=== PATIENT | male | born 1945 | race Caucasian/White ===

== ENCOUNTER 2018-08-10 09:38 | Inpatient (IN) ==
[2018-08-10] MEDS ORDERED: CeFAZolin Syr 2,000MG/20 ML 2,000 MG/20 ML SYRINGE IVPB ONE (10:17)
[2018-08-10] MEDS ORDERED: Albuterol 2.5 MG/3 ML NEBULIZER IH ONE (10:17)
[2018-08-10] MEDS ORDERED: Albuterol 2.5 MG/3 ML NEBULIZER ONE (10:18)
[2018-08-10] MEDS ORDERED: Ringers Solution, Lactated 1,000 ML IVC SCH (10:30)
--- NOTE | 2018-08-10 10:50 | Anesthesia Evaluation PreOp ---
Date of Encounter: 08/10/18 Time of Encounter: 10:48 - Past History Planned Operation: Fem-Fem Bypass Graft Cardiac History: Hyperlipidemia, Other (PAD-on plavix, last dose taken 08/10/2018 at 0800) Pulmonary History: Smoker (50 years), COPD, Snore WAREHOUSE DISTRIBUTION MANAGER History: Denies Any Significant HX Other Medical History: Hepatic (liver CA S/P chemo/XRT), Other (depression) Anesthesia History: No Prior Anesthetic Complications, Past Anesthesia Alcohol Use: none Drug use: none Medications and Allergies Allergy/AdvReac Type Severity Reaction Status Date / Time lisinopril Allergy Swelling Verified 08/10/18 10:17 of Lip/Tongue/Throat - Meds/Allergy Pre-op Review Medications Reviewed: Yes Allergies Reviewed: Yes Beta Blockers on Current Med List: No Anesthesia Results - Labs Laboratory Tests 08/09/18 08/09/18 08/09/18 13:10 13:10 13:10 WBC 8.7 Hgb 15.4 Hct 44.1 Plt Count 201 PT 11.6 INR 1.0 APTT 32.7 Sodium 138 Potassium 4.2 BUN 12 Creatinine 0.93 - Imaging EKG: report reviewed (08/09/2018 SINUS RHYTHM INFERIOR MYOCARDIAL INFARCTION, PROBABLY OLD) Anesthesia Exam O2 Sat Height 1.73 m Height 1.73 m Weight 75.75 kg Weight 75.75 kg O2 Sat by Pulse Oximetry 97 Vital Signs Temp Pulse Resp BP Pulse Ox 98.7 F 68 18 114/63 97 08/10/18 10:23 08/10/18 10:23 08/10/18 10:23 08/10/18 10:23 08/10/18 10:23 Height: 5'8'' Weight: 167 lbs NPO (# of Hours): 8 Pain Scale: 0 Pain Scale Used: Numeric (1 - 10) - HEENT Pupil (Motor): EOMI Mallampati: III Teeth: Normal Oral Opening: Greater than 3 - WAREHOUSE DISTRIBUTION MANAGER LOC: Oriented WAREHOUSE DISTRIBUTION MANAGER Motor: Normal RUE, Normal LUE, Normal RLE, Normal LLE, Normal Face [employer]AREHOUSE DISTRIBUTION MANAGER Sensory: Normal: RUE, LUE, RLE, Face, Deficit: LLE - Cardiac Rhythm: Regular Murmur: None - Pulmonary Breath Sounds: bilateral Clear Respiratory Effort: Symmetrical Anesthesia Assess/Plan ASA Score: 3 Level of consciousness: Cooperative, Oriented, Tranquil Anesthetic Plan: General Monitoring Plan: Standard Monitors Recovery Plan: PACU
--- NOTE | 2018-08-10 11:02 | History & Physical Report ---
Date of Encounter: 08/10/18 Time of Encounter: 11:00 24 Hour HP Update - Instructions Instructions: If the History and Physical is less than 30 days old and was completed prior to A.M. admission and or procedure and has NOT been updated on calendar day of procedure please complete this update prior to performing procedure. - Update Patient reports changes in Medical Condition: No Changes in examination, assessment, or condition: No Changes in Medication: No Preop tests/diagnostics Reviewed: Yes Surgery Remains Indicated: Yes Consent for Planned Operative Procedure(s) Verified: Yes - Pre-Operative Checklist Preoperative Checklist Indicated: Yes Prophylactic Antibiotic Ordered: Yes (Vancomycin due to MRSA risk) Home Medications Include Beta Honey: No Beta Honey Taken Today (Day of Surgery): No Beta Honey Taken Yesterday (Day Prior to Surgery): No Is VTE Prophylaxis Indicated?: Yes
[2018-08-10] MEDS ORDERED: *HR* OxyCODONE Immed Rel 5 MG TABLET PO PRN ×2 (11:17→16:50)
[2018-08-10] MEDS ORDERED: *HR* HYDROmorphone (PF) 1 MG/ML SYRINGE IVP PRN (11:17)
[2018-08-10] MEDS ORDERED: Vancomycin 1,000 MG, Sodium Chloride IRRigation 1,000 ML IR ONE (11:40)
[2018-08-10] MEDS ORDERED: Heparin 1,000 UNITS/500 mL 500 ML ONE (12:00)
[2018-08-10] MEDS ORDERED: Vancomycin 1,000 MG VIAL ONE ×2 (12:01→14:34)
[2018-08-10] MEDS ORDERED: Dexamethasone 4 MG/ML VIAL ONE (12:10)
[2018-08-10] MEDS ORDERED: Lidocaine -MPF 4% 5 ML AMPUL ONE (12:10)
[2018-08-10] MEDS ORDERED: *HR* Rocuronium Bromide 50 MG/5 ML VIAL ONE (12:10)
[2018-08-10] MEDS ORDERED: Ondansetron 4 MG/2 ML VIAL ONE (12:10)
[2018-08-10] MEDS ORDERED: Lidocaine -MPF 2% 2 ML VIAL ONE (12:10)
[2018-08-10] MEDS ORDERED: *HR* Heparin 5,000 UNIT/ML VIAL ONE ×2 (12:10→14:39)
[2018-08-10] MEDS ORDERED: *HR* Midazolam HCl 2 MG/2 ML VIAL ONE (12:12)
[2018-08-10] MEDS ORDERED: *HR* FentaNYL (PF) 100 MCG/2 ML VIAL ONE ×2 (12:12→12:55)
[2018-08-10] MEDS ORDERED: *HR* Propofol 200 MG/20 ML VIAL IVP ONE (12:12)
[2018-08-10] MEDS ORDERED: Vancomycin (wt based) 1,000 MG VIAL IV ONE (13:11)
[2018-08-10] MEDS ORDERED: *HR* Phenylephrine 10 MG/ML VIAL ONE (13:27)
[2018-08-10] MEDS ORDERED: *HR* HYDROMORPHONE 2 MG/ML VIAL ONE (13:28)
--- NOTE | 2018-08-10 16:05 | Operative Note ---
Date of procedure: 08/10/18 Pre-op diagnosis: Peripheral vascular disease with disabling claudication Post-op diagnosis: same Procedure: 1. Right common femoral artery to left common femoral artery bypass graft with 6 mm ring reinforced PTFE. 2. Left common and deep femoral endarterectomy. Complications: None Anesthesia: GETA Surgeon: Sonny Olivo Was there an ophthalmology assistant present: No Estimated blood loss (cc): 200 Specimen: None Condition: stable Disposition: PACU Procedure in Detail: Indications: The patient is a 73year old male with a history of peripheral vascular disease with disabling claudication. The patient was found to have an occluded left iliac stent which extended into the common femoral artery. He was also noted to have femoral artery stenosis. Revascularization was recommended to alleviate his symptoms. Procedure: The patient was identified in the preoperative area. The risks, benefits, and alternatives of the procedure were discussed and all questions were answered. The patient was taken to the operating room and placed in supine position on the operating room table. After the induction of general endotracheal anesthesia, he was cleaned and draped in normal sterile fashion. An oblique incision was made over the right groin sharply. Hemostasis was obtained with electrocautery. Through a process of blunt, sharp, and electrocautery dissection, the right femoral vessels were dissected circumferentially and surrounded with vessel loops. An oblique incision was then made over the left groin sharply. Hemostasis was obtained with electrocautery. Through a process of blunt, sharp, and electrocautery dissection, the left femoral vessels were dissected circumferentially and surrounded with vessel loops. A graft was tunneled between the right and left femoral incisions. The patient received 5000 units of heparin intravenously. After waiting adequate time for the heparin to circulate, a longitudinal incision was made in the right common femoral artery. The graft was sutured in place with a running 6-0 Prolene. The vessels were flushed through the graft. Heparinized saline was infused into the graft lumen. The graft was clamped with an atraumatic clamp. Flow was restored in the right femoral vessels. Tension was applied to the left femoral artery vessel loops. An arteriotomy was made in the left common femoral artery. At this time, it was noted that nearly occlusive plaque extended from the common femoral artery into the deep femoral artery. Using a dental freer, a left common femoral artery and deep femoral artery endarterectomy was performed. Upon removal of the plaque, no elevated flaps were noted. Release of the vessel loops revealed collateral antegrade and retrograde flow. The loops were then applied to tension. The distal end of the graft was cut to fit the arterial defect. The graft was anastamosed with a running 6-0 Prolene. Prior to completing the anastamosis, the left femoral vessels were flushed through the graft anastamosis and heparin was infused into the lumen. The anastamosis was completed and flow was restored in the left lower extremity. Thrombin and gelfoam were used at the proximal anastamosis. Polyphasic signals were noted distal to the anastamoses. The wounds were irrigated with antibiotic-containing saline. Platelet rich and platelet poor plasma were infused into the wounds. Meticulous hemostasis was obtained throughout the wound with electrocautery. Wounds were reapproximated with layers of 2-0 and 3-0 Vicryl. Skin was reapproximated with 3-0 Monocryl. Sterile dressing was applied. The patient was extubated and taken to recovery room in stable condition.
--- NOTE | 2018-08-10 16:15 | Anesthesia Evaluation Post Op ---
Date of Encounter: 08/10/18 Time of Encounter: 16:15 - Vital Signs Vital Signs: Vital Signs/O2 Sat/Glucose, Most Recent Temp Pulse Resp BP Pulse Ox 98.2 F 82 16 156/77 93 08/10/18 16:11 08/10/18 16:11 08/10/18 16:11 08/10/18 16:11 08/10/18 16:11 - Lungs Lungs: Clear Ascult./Percussion - Airway Airway: Non-obstructed - Cardiovascular Regular Rate - Mental Status Mental Status: Baseline Status - Pain Pain Scale: 0 Pain Scale used: Numeric (1 - 10) - Nausea Vomiting Nausea Vomiting: Not Present - Hydration Hydration: NPO - Discharge PostOp Status: Transfer Patient to floor
[2018-08-10] MEDS ORDERED: *HR* Labetalol 20 MG/4 ML SYRINGE IVP PRN (16:50)
[2018-08-10] MEDS ORDERED: Naloxone 0.4 MG/ML INJ IVP PRN ×2 (16:50)
[2018-08-10] MEDS ORDERED: Ondansetron 4 MG/2 ML VIAL IVP PRN (16:50)
[2018-08-10] MEDS ORDERED: OXYCODONE Oral CONC 10 MG/0.5 ML ORAL.SYG SL PRN ×2 (16:50)
[2018-08-10] MEDS ORDERED: Acetaminophen 325 MG TABLET PO PRN (16:50)
[2018-08-10] MEDS ORDERED: 0.9 % Sodium Chloride 1,000 ML IVC SCH (16:50)
[2018-08-10] MEDS ORDERED: *HR* Heparin 5,000 UNIT/ML VIAL SQ SCH (18:00)
[2018-08-10] MEDS: *HR* Metoprolol 5 MG/5 ML VIAL IVP SCH ×2 (18:01→23:43)
[2018-08-10] MEDS: *HR* HYDROcodone/Acet 5/325 mg TABLET PO PRN (22:41)
[2018-08-10] MEDS ORDERED: Vancomycin 1,000 MG in D5% in Water 250 ML IVPB ONE (23:30)
[2018-08-11] MEDS: *HR* HYDROcodone/Acet 5/325 mg TABLET PO PRN (04:23)
[2018-08-11 04:38] LABS: Basophils % 0.2 %; Eosinophils % 0.1 %; Hematocrit 34.5 % (37.5-50.1); Immature Granulocytes % 0.2 % (0-4); Lymphocytes # 0.7 K/mcL (0.6-4.6); Lymphocytes % 6.5 %; Mean Corpuscular HGB Conc 34.2 g/dL (31.6-35.5); Mean Corpuscular Hemoglobin 31.1 pg (28.0-33.3); Mean Platelet Volume 11.6 fL (9.4-12.4); Monocytes # 0.5 K/mcL (0.0-1.3); Monocytes % 5.1 %; Neutrophils # 9.3 K/mcL (1.6-8.9); Platelet Count 151 K/mcL (140-400); Red Blood Count 3.79 M/mcL (4.19-5.50); Red Cell Distribution Width 12.6 % (11.5-14.5); Segmented Neutrophils % 87.9 %
[2018-08-11 04:39] LABS: Hemoglobin 11.8 g/dL (12.9-16.9)
[2018-08-11 04:57] LABS: BUN/Creatinine Ratio 16 (6-26); Blood Urea Nitrogen 13 mg/dL (8-23); Calcium 8.4 mg/dL (8.6-10.3); Carbon Dioxide 24 mEq/L (23-29); Chloride 107 mEq/L (98-107); Glucose 108 mg/dL (70-105); Osmolality,Calculated 287 (280-300); Potassium 4.1 mEq/L (3.5-5.1); Sodium 138 mEq/L (136-145); eGFR For Non-African Americans > 60 (> 60)
[2018-08-11] MEDS: *HR* Metoprolol 5 MG/5 ML VIAL IVP SCH (05:19)
--- NOTE | 2018-08-11 06:58 | Discharge Summary ---
Orders not resulted at time of discharge: Pending orders 08/09/18 13:17 Red Blood Cells [BBK] Routine Date of Encounter: 08/11/18 Time of Encounter: 08:00 - Discharge Diagnosis (1) Atherosclerosis of [place] arteries of extremities with intermittent claudication, bilateral legs Priority: Primary Status: Chronic Comments: The patient is postoperative day #1 after femoral to femoral artery bypass grafting. He has strong pedal signals. His foot is warm. His compartments are soft. He will be discharged today. (2) Mixed hyperlipidemia Priority: Secondary Status: Chronic (3) Essential hypertension Priority: Secondary Status: Chronic (4) Tobacco abuse Priority: Secondary Status: Chronic - Hospital Course Hospital course: Mr. Mayer is a 73 year old male with history of peripheral vascular disease with disabling claudication. He previously undergone left iliac stent placement at [facility]. He underwent a CT angiogram was found have a stent occlusion and a stent was noted to be extending into the left common femoral artery. The patient was admitted on 08/10/2018. Was taken operating room where he underwent a femoral to femoral artery bypass and a left femoral artery. He tolerated the procedure well. On postoperative day #1 he was hemodynamically stable. His wound was healing. He had no hematoma. He has strong pedal signals. He was discharged on postoperative day #1 in stable condition without complication. Time spent discussing smoking cessation with patient: 3 to 10 minutes - Time Spent with Patient Total time spent providing and/or coordinating discharge services: - Discharge Medications Prescriptions: OxyCODONE/APAP 5/325 [Percocet 5/325 MG] 1 each PO Q6HR PRN 5 Days #20 tablet PRN Reason: Postoperative pain Home Medications: Aspirin [Lo-Dose Aspirin EC] 81 mg PO DAILY 08/10/18 [History] Buspirone HCl [Buspar] 30 mg PO DAILY 08/10/18 [History] Clopidogrel [Plavix] 75 mg PO DAILY 08/10/18 [History] Dextroamphetamine/Amphetamine [Adderall Xr 20 mg Capsule] 20 mg PO DAILY 04/20 [History] Multivitamin [One-Daily Multi-Vitamin] 1 tab PO DAILY 08/10/18 [History] OxyCODONE/APAP 5/325 [Percocet 5/325 MG] 1 each PO Q6HR PRN 5 Days #20 tablet 01/10/19 [Rx] Allergies/Adverse Reactions: Allergy/AdvReac Type Severity Reaction Status Date / Time lisinopril Allergy Swelling Verified 08/10/18 10:17 of Lip/Tongue/Throat Date of admission: 08/10/18 16:49 Primary care physician: Norma Goodwin Procedure(s) Performed: Femoral to femoral artery bypass Discharging clinician: Sonny Olivo Anticipated date of discharge: 08/11/18 Exam Vital Signs, Last 4 Hours Temp Pulse Resp BP Pulse Ox 08/11/18 03:00 97.8 F 52 19 101/44 94 General: Present: Conversant, No Apparent Distress Cardiac: Present: Reg Rate and Rhythm Lungs: Present: Normal Breath Sounds Neuro: Present: Alert and responsive, Motor nerves grossly intact, Sensory nerves grossly intact Abdomen: Present: Soft, Non-tender Vascular: Present: Normal capillary refill, Surgical incisions (Clean, dry and intact without erythema or drainage, no hematoma), Other (Pedal signals present bilaterally). Absent: Cyanosis, Edema - Patient Status Disposition: Home, Self-Care Condition: Good Functional capacity at discharge: independent ambulation Overall status at discharge: patient is back to baseline - Discharge Instructions Instructions: Femoropopliteal Bypass (DC) Follow Up With: Norma Goodwin DO [Primary Care Provider] - 08/24/18 11:00 am ( ) Sonny Olivo MD [Partnered Physician] - 08/30/18 1:20 pm Additional Instructions: May remove bandages and shower on 08/12/2018. Wash wounds gently and pat to dry. Applied dry gauze to wounds daily for 7 days. No tub baths or swimming until 09/06/2018. Call Dr. Olivo at [phone] with questions or concerns. - Diet and Activity Activity: increase activity as tolerated Diet: advance to your usual diet
[2018-08-11 07:14] VITALS: BP 122/55
[2018-08-11] MEDS ORDERED: Aspirin Enteric Coated 81 MG Tablet PO SCH (09:00)
[2018-08-11] MEDS ORDERED: DEXTROAMPHETAMINE PO SCH (09:00)
[2018-08-11] MEDS ORDERED: Multivit/Ca/Min/Fe/FA 1 TAB TABLET PO SCH (09:00)
== END 2018-08-11 11:09 | disposition home or self-care (01) | DRG 253 ==
LOC: SAMDAY 09:38 → 2NNU 16:49
PROVIDERS: ADMIT Surgery; ATTEND Surgery
PROC: VASFFBG (ICD-10-PCS; 2018-08-10 11:40)

== ENCOUNTER 2019-03-29 15:12 | Inpatient (IN) ==
--- NOTE | 2019-03-29 15:51 | Emergency Department Note ---
Disposition Clinical Impression: Smoking addiction Leg graft occlusion Qualifiers: Encounter type: initial encounter Qualified Code(s): T82.898A - Other specified complication of vascular prosthetic devices, implants and grafts, initial encounter Disposition: Admitted As Inpatient Condition: Serious Referrals: Norma Goodwin DO [Primary Care Provider] - Forms: ED Satisfaction Letter Time of Disposition: 23:03 Extremity Problem HPI - General Chief complaint: ED Extremity Problem,Nontraumatic Stated complaint: "black foot" Time Seen by Provider: 03/29/19 15:24 Source: patient Mode of arrival: private vehicle Limitations: no limitations Nursing Notes Reviewed: Yes Vital Signs Reviewed: Yes - History of Present Illness HPI Narrative: 73M with Pmhx of PAD and bypass grafting in LLE six months ago, that reports pain that started 1 month prior. Was supposed to get a CT today at an OSH, but CT was down, so he came here. Pt reports that up until yesterday, he only had pain while walking, but now even has pain at rest. He reports last night he co uld not sleep the pain was so bad. Pt reports he used to get relief by hanging his foot off the side of the bed, but this was not working last night. Pt continued to report smoking daily, 10-15 cigarettes per day. Pain Scale: 5 - Related Data Home Medications Medication Instructions Recorded Confirmed Aspirin [Lo-Dose Aspirin EC] 81 mg PO DAILY 08/10/18 08/10/18 Buspirone HCl [Buspar] 30 mg PO DAILY 08/10/18 08/10/18 Clopidogrel [Plavix] 75 mg PO DAILY 08/10/18 08/10/18 Dextroamphetamine/Amphetamine 20 mg PO DAILY 08/10/18 08/10/18 [Adderall Xr 20 mg Capsule] Multivitamin [One-Daily 1 tab PO DAILY 08/10/18 08/10/18 Multi-Vitamin] Allergies Allergy/AdvReac Type Severity Reaction Status Date / Time lisinopril Allergy Swelling Verified 03/29/19 15:19 of Lip/Tongue/Throat Review of Systems: In addition to that documented in the HPI above, the additional ROS was obtained: Constitutional: Denies fevers or chills Eyes: Denies vision changes ENMT: Denies sore throat CV: Denies chest pain Resp: Denies SOB GI: Denies vomiting or diarrhea : Denies painful urination MSK: Denies recent trauma Skin: Denies new rashes Neuro: Denies new numbness or tingling or weakness Reports chronic numbness in carol LE, with pain at rest in LLE Past Medical History - Past Medical History Attestation: Yes The following information was validated with the patient. Medical history: Reports: cancer, COPD, hyperlipidemia, hypertension, liver disease, peripheral artery disease Psychiatric history: Reports: depression - Social History Smoking Status: Current every day smoker Smokeless Tobacco Status: No Alcohol use: Reports: none Drug use: Reports: marijuana Physical Exam General: A&O x 3. No acute distress. Well developed, well nourished. Head: atraumatic, normocephalic. ENT: No conjunctival injection, no scleral icterus. PERRLA. EOMI. Oropharynx non- erythematous. mucous membranes moist. Neuro: No focal deficits, no speech deficit, no facial droop, mentating well. BUE/BLE Str 5/5. Pulm: Lungs CTAB A/P. No wheezes, rales, ronchi. Cardio: RRR no m/r/g. Chest not tender to palpation. Abd: Soft, non-distended. Normoactive bowel sounds. Non-tender to palpation. No guarding. Non rigid. Extremities: Radial pulses 2+ carol, dorsalis pedis on right is 2+, not palpable on left, which is consistent with MICKIE's performed 03/06/19 which showed pulse deficit Skin: warm, dry, intact. No rashes. Psych: Appropriate mood and affect. Answers questions appropriately. Cooperative with exam. - General Limitations: no limitations General appearance: alert, in no apparent distress Course Vital Signs Temperature 98.0 F 03/29/19 15:16 Pulse Rate 81 03/29/19 15:16 Respiratory Rate 18 03/29/19 15:16 Blood Pressure 189/82 03/29/19 15:16 O2 Sat by Pulse Oximetry 96 03/29/19 15:16 Temperature 98.0 F 03/29/19 15:16 Pulse Rate 68 03/29/19 17:59 Respiratory Rate 16 03/29/19 17:59 Blood Pressure 155/67 03/29/19 17:59 O2 Sat by Pulse Oximetry 92 03/29/19 17:59 Oxygen Delivery Oxygen Delivery Room Air Extremity Problem, Nontraumati - MDM Narrative Medical decision making narrative: 73M with Pmhx of PAD with fem-fem bypass graft placed six months prior by Dr. William bowen. Supposed to have CTA with runoff today at outside facility, but their scanner was down. Will perform exam, do screening labs, and consult Dr. Olivo for next steps. Spoke with Dr. Rand, vascular surgeon consumer affairs director, and he requested repeat MICKIE's given pt's increase in symptoms. MICKIE showed critical value of 0.2 on left side, spoke again with Dr. Rand, who recommended low dose heparin, admission to the hospitalist, and consult to Dr. Rand in the morning. Pt was amenable to this plan. Low dose heparin was ordered, patient was ordered nothing by mouth after midnight, patient was admitted to the hospitalist Dr. Shelby who agreed to accept the patient to his service. Results of the workup including any imaging and/or labwork was shared with the patient at bedside. Patient was given an opportunity to ask questions at bedside and all of their concerns were addressed. Patient verbalized understanding and agreement with plan of care. Pt remained stable while in the department. Patient reports that he has quite a few questions for the vascular surgeon in the morning. I encouraged the patient to ask his questions and ensure that he got the answers he was looking for. - Medical Records Medical records reviewed: Yes I reviewed the patient's medical records. - Lab Data Lab results reviewed: Yes I reviewed the patient's lab results. Result diagrams: 03/29/19 16:35 03/29/19 16:35 Lab Results 03/29/19 03/29/19 03/29/19 Range/Units 16:35 16:35 16:35 WBC 6.8 (4.3-11.1) K/mcL RBC 4.83 (4.19-5.50) M/mcL Hgb 15.2 (12.9-16.9) g/dL Hct 43.7 (37.5-50.1) % MCV 90.5 (83.0-100.0) fL MCH 31.5 (28.0-33.3) pg MCHC 34.8 (31.6-35.5) g/dL RDW 12.6 (11.5-14.5) % Plt Count 180 (140-400) K/mcL MPV 11.4 (9.4-12.4) fL Immature Gran % 0.4 (0-4) % Seg Neutrophils % 81.1 % Lymphocytes % 9.9 % Monocytes % 7.0 % Eosinophils % 1.3 % Basophils % 0.3 % Neutrophils # 5.5 (1.6-8.9) K/mcL Lymphocytes # 0.7 (0.6-4.6) K/mcL Monocytes # 0.5 (0.0-1.3) K/mcL Eosinophils # 0.1 (0.0-0.6) K/mcL Basophils # 0.0 (0.0-0.2) K/mcL PT 11.6 (9.4-12.1) Seconds INR 1.0 APTT 31.7 (26.0-36.0) Seconds Sodium 139 (136-145) mEq/L Potassium 3.8 (3.5-5.1) mEq/L Chloride 107 (98-107) mEq/L Carbon Dioxide 25 (23-29) mEq/L BUN 19 (8-23) mg/dL Creatinine 0.78 (0.70-1.30) mg/dL Est GFR ( Amer) > 60 (> 60) Est GFR (Non-Af Amer) > 60 (> 60) BUN/Creatinine Ratio 24 (6-26) Glucose 100 (70-105) mg/dL Calculated Osmolality 290 (280-300) Calcium 9.4 (8.6-10.3) mg/dL - Radiology Data Radiology results reviewed: Yes I reviewed the patient's radiology results. Aorta w/Runoff CTA 03/29/19 15:58 IMPRESSION: 1. Complete occlusion of a left common/external iliac artery stent and fem-fem bypass graft. Normal filling of the left femoral arteries likely from collateralization with mild atherosclerosis of the superficial femoral and popliteal arteries. Normal three-vessel runoff into the left lower leg. 2. Metal stent of the right common/external iliac arteries which is widely patent with a normal three-vessel runoff into the right lower leg. 3. Normal caliber abdominal aorta with moderate atherosclerotic vascular disease. Patent mesenteric and renal arteries. 4. Moderate emphysematous changes of the lung bases. 5. 1.1 cm indeterminate right adrenal nodule. Recommend follow-up adrenal protocol CT in 1 year. D/ / Wilfredo Torres MD / Wilfredo Torres MD Interpreting Provider: Wilfredo Torres MD - EKG Data EKG attestation: Yes I reviewed and interpreted this EKG. EKG results narrative: HR 70, rhythm sinus, axis right at -36. MN 135, QRS 91, Qtc 427. No ST segment elevation or depression. No significant changes when compared with old EKG.
[2019-03-29] MEDS ORDERED: Isovue-370 500 ML BOTTLE IVP ONE (15:58)
--- NOTE | 2019-03-29 16:11 | Emergency Department Note ---
Disposition Clinical Impression: Smoking addiction Leg graft occlusion Qualifiers: Encounter type: initial encounter Qualified Code(s): T82.898A - Other specified complication of vascular prosthetic devices, implants and grafts, initial encounter Disposition: Admitted As Inpatient Condition: Serious Time of Disposition: 00:54 General Adult HPI - General Chief complaint: ED Extremity Problem,Nontraumatic Stated complaint: "black foot" Time Seen by Provider: 03/29/19 15:24 Source: patient Mode of arrival: private vehicle Limitations: no limitations - History of Present Illness HPI Narrative: Mr. Mayer is a 73 year old male with history of, peripheral vascular disease, smoking, hyperlipidemia, and left femoral bypass graft done 6 months ago. He states for the past month he has developed pain that started in his left lower back and has traveled down to his left foot. He is able to ambulate on his own, but has had increased pain at rest starting 10 days ago but got even worse last night. He denies numbness or tingling. He was scheduled to have a CT angio today but was told the scanner was broke so he decided to come in today to get checked out. He denies any chest pain, shortness of breath, nausea, vomiting, abdominal pain, lightheadedness, or right sided leg discomfort. Pain Scale: 5 - Related Data Home Medications Medication Instructions Recorded Confirmed Aspirin [Lo-Dose Aspirin EC] 81 mg PO DAILY 08/10/18 08/10/18 Buspirone HCl [Buspar] 30 mg PO DAILY 08/10/18 08/10/18 Clopidogrel [Plavix] 75 mg PO DAILY 08/10/18 08/10/18 Dextroamphetamine/Amphetamine 20 mg PO DAILY 08/10/18 08/10/18 [Adderall Xr 20 mg Capsule] Multivitamin [One-Daily 1 tab PO DAILY 08/10/18 08/10/18 Multi-Vitamin] Allergies Allergy/AdvReac Type Severity Reaction Status Date / Time lisinopril Allergy Swelling Verified 03/29/19 15:19 of Lip/Tongue/Throat Review of Systems: As Per HPI Past Medical History - Past Medical History Medical history: Reports: cancer, COPD, hyperlipidemia, hypertension, liver disease, peripheral artery disease Psychiatric history: Reports: depression - Social History Smoking Status: Current every day smoker Smokeless Tobacco Status: No Alcohol use: Reports: none Drug use: Reports: marijuana Physical Exam - General Limitations: no limitations General appearance: alert, in no apparent distress - Head Head exam: atraumatic - Eye Eye exam: Present: normal appearance, EOMI - Neck Neck exam: Present: normal inspection, full ROM - Chest Chest inspection: Present: normal inspection, symmetric chest wall rise - Respiratory Respiratory exam: Present: normal lung sounds bilaterally - Cardiovascular Cardiovascular exam: Present: regular rate, normal rhythm - Abdominal Exam Abdominal exam: Present: soft, Non-Tender, normal bowel sounds - Extremities Exam Extremities exam: Present: normal inspection, full ROM, normal capillary refill - Expanded Lower Extremity Exam Lower leg exam: Present: normal inspection, full ROM Foot/toe exam: Present: normal inspection, full ROM (left 2nd digit slightly darker but has normal capillary refill) - Neurological Exam Neurological exam: Present: alert, oriented X3, CN II-XII intact - Skin Skin exam: Present: warm, normal color - Other Other exam information: peripheral pulses intact bilaterally Course Vital Signs Temperature 98.0 F 03/29/19 15:16 Pulse Rate 81 03/29/19 15:16 Respiratory Rate 18 03/29/19 15:16 Blood Pressure 189/82 03/29/19 15:16 O2 Sat by Pulse Oximetry 96 03/29/19 15:16 Temperature 98.0 F 03/29/19 15:16 Pulse Rate 72 03/29/19 16:58 Respiratory Rate 16 03/29/19 16:58 Blood Pressure 158/72 03/29/19 16:58 O2 Sat by Pulse Oximetry 91 03/29/19 16:58 Oxygen Delivery Oxygen Delivery Room Air Medical Decision Making - Lab Data Result diagrams: 03/29/19 16:35 03/29/19 16:35 Lab Results 03/29/19 Range/Units 16:35 WBC 6.8 (4.3-11.1) K/mcL RBC 4.83 (4.19-5.50) M/mcL Hgb 15.2 (12.9-16.9) g/dL Hct 43.7 (37.5-50.1) % MCV 90.5 (83.0-100.0) fL MCH 31.5 (28.0-33.3) pg MCHC 34.8 (31.6-35.5) g/dL RDW 12.6 (11.5-14.5) % Plt Count 180 (140-400) K/mcL MPV 11.4 (9.4-12.4) fL Immature Gran % 0.4 (0-4) % Seg Neutrophils % 81.1 % Lymphocytes % 9.9 % Monocytes % 7.0 % Eosinophils % 1.3 % Basophils % 0.3 % Neutrophils # 5.5 (1.6-8.9) K/mcL Lymphocytes # 0.7 (0.6-4.6) K/mcL Monocytes # 0.5 (0.0-1.3) K/mcL Eosinophils # 0.1 (0.0-0.6) K/mcL Basophils # 0.0 (0.0-0.2) K/mcL Attestation Statement - Attestation Attestation: The history, physical exam, and medical decision making was performed by the medical student either while I was physically present and actively involved or I personally re-performed the exam and medical decision making. I have verified the accuracy of the medical student's documentation with regards to the history, physical exam findings, and medical decision making. Agree with medical student documentation. See resident and attending note for further details.
--- NOTE | 2019-03-29 16:14 | Emergency Department Note ---
Disposition Clinical Impression: Leg graft occlusion, Smoking addiction Disposition: Admitted As Inpatient Condition: Serious Referrals: Norma Goodwin DO [Primary Care Provider] - Forms: ED Satisfaction Letter Time of Disposition: 22:49 General Adult HPI - General Chief complaint: ED Extremity Problem,Nontraumatic Stated complaint: "black foot" Time Seen by Provider: 03/29/19 15:24 Source: patient Mode of arrival: private vehicle Limitations: no limitations - History of Present Illness Pain Scale: 5 - Related Data Home Medications Medication Instructions Recorded Confirmed Aspirin [Lo-Dose Aspirin EC] 81 mg PO DAILY 08/10/18 08/10/18 Buspirone HCl [Buspar] 30 mg PO DAILY 08/10/18 08/10/18 Clopidogrel [Plavix] 75 mg PO DAILY 08/10/18 08/10/18 Dextroamphetamine/Amphetamine 20 mg PO DAILY 08/10/18 08/10/18 [Adderall Xr 20 mg Capsule] Multivitamin [One-Daily 1 tab PO DAILY 08/10/18 08/10/18 Multi-Vitamin] Allergies Allergy/AdvReac Type Severity Reaction Status Date / Time lisinopril Allergy Swelling Verified 03/29/19 15:19 of Lip/Tongue/Throat Past Medical History - Past Medical History Medical history: Reports: cancer, COPD, hyperlipidemia, hypertension, liver disease, peripheral artery disease Psychiatric history: Reports: depression - Social History Smoking Status: Current every day smoker Smokeless Tobacco Status: No Alcohol use: Reports: none Drug use: Reports: marijuana Physical Exam - General Limitations: no limitations General appearance: alert, in no apparent distress Course Vital Signs Temperature 98.0 F 03/29/19 15:16 Pulse Rate 81 03/29/19 15:16 Respiratory Rate 18 03/29/19 15:16 Blood Pressure 189/82 03/29/19 15:16 O2 Sat by Pulse Oximetry 96 03/29/19 15:16 Temperature 98.0 F 03/29/19 15:16 Pulse Rate 68 03/29/19 17:59 Respiratory Rate 16 03/29/19 17:59 Blood Pressure 155/67 03/29/19 17:59 O2 Sat by Pulse Oximetry 92 03/29/19 17:59 Oxygen Delivery Oxygen Delivery Room Air Medical Decision Making - MDM Narrative Medical decision making narrative: Patient has severe critical MICKIE results of the left lower extremity. 0.2. We have paged vascular surgery again. Awaiting reply for disposition - Medical Records Medical records reviewed: Yes I reviewed the patient's medical records. - Lab Data Lab results reviewed: Yes I reviewed the patient's lab results. Result diagrams: 03/29/19 16:35 03/29/19 16:35 Lab Results 03/29/19 03/29/19 03/29/19 Range/Units 16:35 16:35 16:35 WBC 6.8 (4.3-11.1) K/mcL RBC 4.83 (4.19-5.50) M/mcL Hgb 15.2 (12.9-16.9) g/dL Hct 43.7 (37.5-50.1) % MCV 90.5 (83.0-100.0) fL MCH 31.5 (28.0-33.3) pg MCHC 34.8 (31.6-35.5) g/dL RDW 12.6 (11.5-14.5) % Plt Count 180 (140-400) K/mcL MPV 11.4 (9.4-12.4) fL Immature Gran % 0.4 (0-4) % Seg Neutrophils % 81.1 % Lymphocytes % 9.9 % Monocytes % 7.0 % Eosinophils % 1.3 % Basophils % 0.3 % Neutrophils # 5.5 (1.6-8.9) K/mcL Lymphocytes # 0.7 (0.6-4.6) K/mcL Monocytes # 0.5 (0.0-1.3) K/mcL Eosinophils # 0.1 (0.0-0.6) K/mcL Basophils # 0.0 (0.0-0.2) K/mcL PT 11.6 (9.4-12.1) Seconds INR 1.0 APTT 31.7 (26.0-36.0) Seconds Sodium 139 (136-145) mEq/L Potassium 3.8 (3.5-5.1) mEq/L Chloride 107 (98-107) mEq/L Carbon Dioxide 25 (23-29) mEq/L BUN 19 (8-23) mg/dL Creatinine 0.78 (0.70-1.30) mg/dL Est GFR ( Amer) > 60 (> 60) Est GFR (Non-Af Amer) > 60 (> 60) BUN/Creatinine Ratio 24 (6-26) Glucose 100 (70-105) mg/dL Calculated Osmolality 290 (280-300) Calcium 9.4 (8.6-10.3) mg/dL - Radiology Data Radiology results reviewed: Yes I reviewed the patient's radiology results. Attestation Statement - Attestation Attestation: I examined this patient and my medical decision-making was reviewed with the Resident Physician. I agree with the documented findings, disposition and treatment plan as described except to the extent set forth below. 73-year-old male with a history of peripheral arterial disease status post bypass graft in the left lower extremity presented to the ER for increasing pain and some intermittent claudication. Patient apparently had an ultrasound done of his leg a few weeks ago that showed an occlusion of this graft. His vascular surgeon wanted him to have a CTA with runoff of the left lower extremity. We will go ahead and order that from the ER. On physical exam his throat is of normal color. Normal temperature sensation at this time. No signs acute occlusion on physical exam. We will do the CT of the leg. Results are to see her pending and disposition is pending at this time.
[2019-03-29 16:56] LABS: Basophils % 0.3 %; Eosinophils # 0.1 K/mcL (0.0-0.6); Eosinophils % 1.3 %; Hematocrit 43.7 % (37.5-50.1); Hemoglobin 15.2 g/dL (12.9-16.9); Immature Granulocytes % 0.4 % (0-4); Lymphocytes # 0.7 K/mcL (0.6-4.6); Lymphocytes % 9.9 %; Mean Corpuscular HGB Conc 34.8 g/dL (31.6-35.5); Mean Corpuscular Hemoglobin 31.5 pg (28.0-33.3); Mean Corpuscular Volume 90.5 fL (83.0-100.0); Mean Platelet Volume 11.4 fL (9.4-12.4); Monocytes # 0.5 K/mcL (0.0-1.3); Neutrophils # 5.5 K/mcL (1.6-8.9); Platelet Count 180 K/mcL (140-400); Red Blood Count 4.83 M/mcL (4.19-5.50); Red Cell Distribution Width 12.6 % (11.5-14.5); Segmented Neutrophils % 81.1 %; White Blood Count 6.8 K/mcL (4.3-11.1)
[2019-03-29 17:04] LABS: Prothrombin Time 11.6 Seconds (9.4-12.1)
[2019-03-29 17:07] LABS: Activated Partial Thrombo Time 31.7 Seconds (26.0-36.0)
[2019-03-29 17:20] LABS: BUN/Creatinine Ratio 24 (6-26); Blood Urea Nitrogen 19 mg/dL (8-23); Calcium 9.4 mg/dL (8.6-10.3); Carbon Dioxide 25 mEq/L (23-29); Chloride 107 mEq/L (98-107); Glucose 100 mg/dL (70-105); Osmolality,Calculated 290 (280-300); Potassium 3.8 mEq/L (3.5-5.1); Sodium 139 mEq/L (136-145); eGFR For African Americans > 60 (> 60); eGFR For Non-African Americans > 60 (> 60)
[2019-03-29] MEDS ORDERED: *HR* Heparin 5,000 UNIT/ML VIAL IVP PRN ×2 (22:54)
[2019-03-29] MEDS ORDERED: *HR* Heparin 5,000 UNIT/ML VIAL IVP ONE (22:54)
[2019-03-29] MEDS ORDERED: Heparin 25,000 UNIT/250 ML D5W 25,000 UNIT/250 ML IV.SOLN IVC SCH (23:00)
--- NOTE | 2019-03-30 00:23 | Internal Med History&Physical ---
Date of Encounter: 03/30/19 Internal Medicine - H&P: HPI History of present illness: Mr. Mayer is a 73 year old male Past Med Surg Social Fam HX - Past Medical History Medical history: cancer, COPD, hyperlipidemia, hypertension, liver disease, peripheral artery disease Additional medical history: hep b. hep c. liver ca Psychiatric history: depression - Past Surgical History Additional surgical history: left tibia. right ankkle - Social History Smoking Status: Current every day smoker Smokeless Tobacco Status: No Alcohol use: none Drug use: marijuana Internal Medicine - H&P: Meds Aspirin [Lo-Dose Aspirin EC] 81 mg PO DAILY 08/10/18 [History] Buspirone HCl [Buspar] 30 mg PO DAILY 08/10/18 [History] Clopidogrel [Plavix] 75 mg PO DAILY 08/10/18 [History] Dextroamphetamine/Amphetamine [Adderall Xr 20 mg Capsule] 20 mg PO DAILY 08/10/18 [History] Multivitamin [One-Daily Multi-Vitamin] 1 tab PO DAILY 08/10/18 [History] Allergy/AdvReac Type Severity Reaction Status Date / Time lisinopril Allergy Swelling Verified 03/29/19 15:19 of Lip/Tongue/Throat All Systems PM: A 10-system review of systems was performed and is negative for pertinent findings except as documented above in the HPI. - Constitutional Vitals: Temp Pulse Resp BP Pulse Ox 98.0 F 68 16 155/67 92 03/29/19 15:16 03/29/19 17:59 03/29/19 17:59 03/29/19 17:59 03/29/19 17:59 Internal Med - H&P Results - Labs CBC & Chem 7: 03/29/19 16:35 03/29/19 16:35 Labs: Short CBC 03/29/19 Range/Units 16:35 WBC 6.8 (4.3-11.1) K/mcL Hgb 15.2 (12.9-16.9) g/dL Hct 43.7 (37.5-50.1) % Plt Count 180 (140-400) K/mcL Neutrophils # 5.5 (1.6-8.9) K/mcL BMP 03/29/19 16:35 Sodium 139 Potassium 3.8 Chloride 107 Carbon Dioxide 25 BUN 19 Creatinine 0.78 Glucose 100 Calcium 9.4 - Impressions ITS Impressions Aorta w/Runoff CTA 03/29/19 15:58 IMPRESSION: 1. Complete occlusion of a left common/external iliac artery stent and fem-fem bypass graft. Normal filling of the left femoral arteries likely from collateralization with mild atherosclerosis of the superficial femoral and popliteal arteries. Normal three-vessel runoff into the left lower leg. 2. Metal stent of the right common/external iliac arteries which is widely patent with a normal three-vessel runoff into the right lower leg. 3. Normal caliber abdominal aorta with moderate atherosclerotic vascular disease. Patent mesenteric and renal arteries. 4. Moderate emphysematous changes of the lung bases. 5. 1.1 cm indeterminate right adrenal nodule. Recommend follow-up adrenal protocol CT in 1 year. D/ / Wilfredo Torres MD / Wilfredo Torres MD Interpreting Provider: Wilfredo Torres MD - Time Spent With Patient Total time spent is greater than 50% in coordination of care (as documented) at patient's floor/unit and/or counseling patient:
--- NOTE | 2019-03-30 00:29 | Event Note ---
Date of Encounter: 03/30/19 Time of Encounter: 23:00 I was called by the emergency room while operating this evening about this patient. He is a patient of Dr. Olivo's and had undergone a femoral-femoral bypass graft in the past. A follow-up MICKIE was recommended to the ER staff which was performed late this evening. I spoke to the technologist who performed the exam. This demonstrated an ankle-brachial index of 0.8 on the right and only 0.24 on the left. On November 22 the patient had had an ankle-brachial index measured at 0.71 on the right and 0.79 on the left with a duplex scan indicating a patent femoral-femoral graft. I am informed that a CT scan was performed earlier today which revealed an occlusion of the femoral-femoral graft. I was informed by the emergency room staff that the patient has been having lower extremity symptoms which have been worsening over time to the point that he has ischemic rest pain in the left lower extremity that is not relieved by dangling his left leg over the side of the bed. Because of the finding of the graft occlusion and the reported severe symptoms from the graft occlusion affecting his left lower extremity with nocturnal rest pain and ischemic rest pain I recommended the patient be admitted with a consultation to vascular surgery. I recommended the patient be left nothing by mouth after midnight and placed on IV heparin drip. Will ask Dr. Olivo to evaluate patient in morning for possible surgical thrombectomy in the near future.
[2019-03-30] MEDS ORDERED: *HR* LORazepam 1 MG TABLET PO ONE (01:15)
[2019-03-30] MEDS ORDERED: Naloxone 0.4 MG/ML INJ IVP PRN ×2 (01:16→14:39)
[2019-03-30] MEDS ORDERED: Acetaminophen 325 MG TABLET PO PRN ×3 (01:16→14:39)
[2019-03-30] MEDS ORDERED: traMADol 50 MG TABLET PO PRN (01:16)
[2019-03-30] MEDS ORDERED: *HR* OxyCODONE Immed Rel 5 MG TABLET PO PRN ×4 (01:16→14:39)
[2019-03-30] MEDS ORDERED: Ipratropium/Albuterol Neb 3 ML IH PRN (01:38)
--- NOTE | 2019-03-30 01:38 | Internal Med History&Physical ---
Date of Encounter: 03/30/19 Time of Encounter: 01:37 Internal Medicine - H&P: HPI Chief complaint: leg pain Admitted From: Home Plans for Post Hospital Care: Home History of present illness: Phan Mayer is a 73 year old male smoker with hypertension, hyperlipidemia and peripheral artery disease who previously had a left iliac stent placed at [facility] many years ago but earlier this year had disabling claudication and underwent a CT angiogram with the finding of a stent occlusion. He underwent right common femoral to left common femoral artery bypass grafting as well as left common and deep femoral endarterectomy and 08/10/18. He has continued to be followed as an outpatient but he continues to smoke. He says that over the past 1 month he started developing pain in his lower left leg and more recently dusky changes in the coloration of his foot. He says he was putting off the care because he was attending to his and daughter who have recently been diagnosed with cancer. However due to ongoing pain causing ambulatory difficulty he was evaluated and recommended to get a CT scan. He went to [facility] initially however there CT scan was done and therefore came here. He is found to have complete occlusion of the left common/external iliac artery stent as well as the femorofemoral bypass graft. The vascular surgeon was consulted who recommended that an MICKIE be performed and demonstrated to be 0.24 on the left lower extremity, previously 0.79 4 months ago. He has been started on heparin drip and is admitted for further care. He says his pain is present now even at rest and is no longer really relieved with dangling his foot. He denies associated fever or chills however. Vitals: Reviewed General: Well-developed white man lying comfortably in bed in no acute distress. Skin: Warm and supple. HEENT: Moist mucous membranes. No conjunctivae pallor. Neck: No lymphadenopathy. No JVD. No carotid bruits. No palpable thyroid. Chest: Normal thoracic expansion. Normal breath sounds. Clear to auscultation. Heart: Normal S1 & S2; rhythmic. No rubs or murmurs. Abdomen: Non-distended, soft and non-tender to palpation. No peritoneal reaction. Extremities: Left foot with purplish discoloration in its distal portion, blackening changes noted in the 2nd toe of the left foot which is tender to touch. The foot remains warm with significantly diminished dorsalis pedis pulse. Surgical sites of bypass remain non-inflammatory. Neurological: Awake, alert and oriented to person, place and time. No focal deficits. Psych: Affect appropriate. Assessment/Plan 1. Acute arterial insufficiency of the left leg: Seen to have critical limb ischemia. The occlusion of the graft is unfortunate given the recent establishment of this access. It is unclear if he has remained adherent to antiplatelet and statin therapy although he continues to smoke. Will keep him on heparin drip and provide pain control measures. Keep him NPO and await vascular surgery consultation as he may require a thrombectomy. 2. PAD: Continue aspirin and increase to high intensity statin. 3. Tobacco use disorder: 5 minutes were spent counseling and educating the patient on this habit. social services coordinator and resources were made available. 4. Mood disorder: Continue sertraline and will provide a dose of lorazepam tonight for anxiolysis. Past Med Surg Social Fam HX - Past Medical History Medical history: cancer, COPD, hyperlipidemia, hypertension, liver disease, peripheral artery disease Additional medical history: hep b. hep c. liver ca Psychiatric history: depression - Past Surgical History Additional surgical history: left tibia. right ankkle - Social History Smoking Status: Current every day smoker Smokeless Tobacco Status: No Alcohol use: none Drug use: marijuana Internal Medicine - H&P: Meds Aspirin [Lo-Dose Aspirin EC] 81 mg PO DAILY 08/10/18 [History] Multivitamin [One-Daily Multi-Vitamin] 1 tab PO DAILY 08/10/18 [History] Atorvastatin [Lipitor] 20 mg PO HS 03/30/19 [History] Sertraline [Zoloft] 200 mg PO DAILY 03/30/19 [History] Allergy/AdvReac Type Severity Reaction Status Date / Time lisinopril Allergy Swelling Verified 03/29/19 15:19 of Lip/Tongue/Throat All Systems PM: A 10-system review of systems was performed and is negative for pertinent findings except as documented above in the HPI.Family history reviewed and found non-contributory. - Constitutional Vitals: Temp Pulse Resp BP Pulse Ox 98.0 F 68 20 153/79 92 03/29/19 15:16 03/29/19 17:59 03/30/19 01:23 03/30/19 01:23 03/29/19 17:59 Exam: . Internal Med - H&P Results - Labs CBC & Chem 7: 03/29/19 16:35 03/29/19 16:35 Labs: Short CBC 03/29/19 Range/Units 16:35 WBC 6.8 (4.3-11.1) K/mcL Hgb 15.2 (12.9-16.9) g/dL Hct 43.7 (37.5-50.1) % Plt Count 180 (140-400) K/mcL Neutrophils # 5.5 (1.6-8.9) K/mcL BMP 03/29/19 16:35 Sodium 139 Potassium 3.8 Chloride 107 Carbon Dioxide 25 BUN 19 Creatinine 0.78 Glucose 100 Calcium 9.4 - Impressions ITS Impressions Aorta w/Runoff CTA 03/29/19 15:58 IMPRESSION: 1. Complete occlusion of a left common/external iliac artery stent and fem-fem bypass graft. Normal filling of the left femoral arteries likely from collateralization with mild atherosclerosis of the superficial femoral and popliteal arteries. Normal three-vessel runoff into the left lower leg. 2. Metal stent of the right common/external iliac arteries which is widely patent with a normal three-vessel runoff into the right lower leg. 3. Normal caliber abdominal aorta with moderate atherosclerotic vascular disease. Patent mesenteric and renal arteries. 4. Moderate emphysematous changes of the lung bases. 5. 1.1 cm indeterminate right adrenal nodule. Recommend follow-up adrenal protocol CT in 1 year. D/ / Wilfredo Torres MD / Wilfredo Torres MD Interpreting Provider: Wilfredo Torres MD - Time Spent With Patient Total time spent is greater than 50% in coordination of care (as documented) at patient's floor/unit and/or counseling patient:
[2019-03-30] MEDS ORDERED: Nicotine 7 MG PATCH.TD24 TD SCH (02:00)
[2019-03-30] MEDS ORDERED: Aspirin Enteric Coated 81 MG Tablet PO SCH (09:00)
[2019-03-30] MEDS ORDERED: Multivit/Ca/Min/Fe/FA 1 TAB TABLET PO SCH (09:00)
--- NOTE | 2019-03-30 09:23 | Anesthesia Evaluation PreOp ---
Date of Encounter: 03/30/19 Time of Encounter: 10:18 - Past History Planned Operation: fem-fem thrombectomy Cardiac History: HTN, Hyperlipidemia, Other (PVD) Pulmonary History: Smoker (1 ppd), COPD, Snore [employer] History: Other (anxiety, depression) Other Medical History: Hepatic (liver CA s/p chemo/XRT and partial hepatectomy), GERD Anesthesia History: No Prior Anesthetic Complications, Past Anesthesia (previous grade 1 view) Alcohol Use: none Drug use: marijuana Medications and Allergies Aspirin [Lo-Dose Aspirin EC] 81 mg PO DAILY 08/10/18 [History] Multivitamin [One-Daily Multi-Vitamin] 1 tab PO DAILY 08/10/18 [History] Atorvastatin [Lipitor] 20 mg PO HS 03/30/19 [History] Sertraline [Zoloft] 200 mg PO DAILY 03/30/19 [History] Allergy/AdvReac Type Severity Reaction Status Date / Time lisinopril Allergy Swelling Verified 03/29/19 15:19 of Lip/Tongue/Throat - Meds/Allergy Pre-op Review Medications Reviewed: Yes Allergies Reviewed: Yes Beta Blockers on Current Med List: No Anesthesia Results - Labs 03/29/19 16:35 03/29/19 16:35 Laboratory Tests 03/29/19 16:35 PT 11.6 INR 1.0 APTT 31.7 - Imaging EKG: report reviewed Additional studies: 03/29/2019 CT angio aorta w con runoff IMPRESSION: 1. Complete occlusion of a left common/external iliac artery stent and fem-fem bypass graft. Normal filling of the left femoral arteries likely from collateralization with mild atherosclerosis of the superficial femoral and popliteal arteries. Normal three-vessel runoff into the left lower leg. 2. Metal stent of the right common/external iliac arteries which is widely patent with a normal three-vessel runoff into the right lower leg. 3. Normal caliber abdominal aorta with moderate atherosclerotic vascular disease. Patent mesenteric and renal arteries. 4. Moderate emphysematous changes of the lung bases. 5. 1.1 cm indeterminate right adrenal nodule. Recommend follow-up adrenal protocol CT in 1 year. Anesthesia Exam Vital Signs/O2 Sat/Glucose, Most Recent Temp Pulse Resp BP Pulse Ox 97.6 F 67 16 151/88 96 03/30/19 07:17 03/30/19 07:17 03/30/19 07:17 03/30/19 07:17 03/30/19 07:17 Weight: 76 kg NPO (# of Hours): > 8 hr - HEENT Pupil (Motor): Pupils equal, EOMI Mallampati: III Teeth: Normal Oral Opening: Greater than 3 - [employer] LOC: Oriented - Cardiac Rhythm: Regular Murmur: None - Pulmonary Breath Sounds: bilateral Clear Respiratory Effort: Symmetrical Anesthesia Assess/Plan ASA Score: 3, E Level of consciousness: Cooperative, Oriented Anesthetic Plan: General Monitoring Plan: Standard Monitors, A-Line Recovery Plan: PACU
[2019-03-30] MEDS ORDERED: *HR* Labetalol 20 MG/4 ML SYRINGE IVP PRN ×2 (10:22→14:39)
[2019-03-30] MEDS ORDERED: *HR* Promethazine 25 MG/ML VIAL IVP PRN (10:22)
[2019-03-30] MEDS ORDERED: Ondansetron 4 MG/2 ML VIAL IVP ONE (10:22)
[2019-03-30] MEDS ORDERED: Albuterol 2.5 MG/3 ML NEBULIZER IH ONE (10:22)
[2019-03-30] MEDS ORDERED: Heparin 1,000 UNITS/500 mL 500 ML ONE (10:26)
[2019-03-30] MEDS ORDERED: Acetaminophen IV 1,000 MG/100 ML INFUS..BTL ONE (10:27)
--- NOTE | 2019-03-30 10:45 | Vascular/Endovasc Consult Note ---
Date of Encounter: 03/30/19 Time of Encounter: 10:30 Assessment and Plan (1) Ischemia of right lower extremity Current Visit: Yes Status: Acute The patient has evidence of acute on chronic right lower extremity ischemia. He is a known chronic right iliac artery occlusion. He now has an occluded femoral-femoral artery bypass graft. His ankle-brachial indexes consistent with severe disease in the right lower extremity. His motor and sensory exam is abnormal. Emergent revascularization is recommended. The risks, benefits and alternatives of the procedure were discussed and all questions were answered. He expressed understanding and wishes to proceed. (2) Mixed hyperlipidemia Current Visit: No Status: Chronic (3) Essential hypertension Current Visit: No Status: Chronic (4) Tobacco abuse Current Visit: No Status: Chronic - History of Present Illness Consult date: 03/30/19 Requesting physician: Jessica Chi Consult reason: Acute limb ischemia Chief complaint: Acute right lower extremity ischemia with rest pain History of present illness: Mr. Mayer is a 73 year old male with a history of peripheral vascular disease, hyperlipidemia and tobacco abuse. The patient previously underwent a left iliac stent at [facility]. The stent was malpositioned into the left common femoral artery. The patient subsequently occlusion of the stent and the patient presented to [facility] where he underwent a femoral to femoral artery bypass graft. The patient now reports disabling claudication and rest pain of the right lower extremity. His CT scan revealed an occluded graft. His ankle brachial index is consistent with severe disease. Vascular surgery was counseled. The patient was admitted and started on intravenous heparin drip. The time of evaluation the patient reports severe rest pain. He denies any chest pain or shortness of breath. Past Med Surg Social Fam HX - Past Medical History Medical history: cancer, COPD, hyperlipidemia, hypertension, liver disease, peripheral artery disease Additional medical history: hep b. hep c. liver ca Psychiatric history: depression - Past Surgical History Additional surgical history: left tibia. right ankkle - Social History Smoking Status: Current every day smoker Smokeless Tobacco Status: No Alcohol use: none Drug use: marijuana - Family History Mother Living Status: Father Living Status: Hx Family Cardiac Disorders: Yes Medications and Allergies Aspirin [Lo-Dose Aspirin EC] 81 mg PO DAILY 08/10/18 [History] Multivitamin [One-Daily Multi-Vitamin] 1 tab PO DAILY 08/10/18 [History] Atorvastatin [Lipitor] 20 mg PO HS 03/30/19 [History] Sertraline [Zoloft] 200 mg PO DAILY 03/30/19 [History] Allergy/AdvReac Type Severity Reaction Status Date / Time lisinopril Allergy Swelling Verified 03/29/19 15:19 of Lip/Tongue/Throat All Systems Review: The remainder of the systems were reviewed and are negative - Constitutional Constitutional: no chills, no fever(s) - Cardiovascular Cardiovascular: no chest pain at rest, no dyspnea at rest Exam Vital Signs, Last 4 Hours Temp Pulse Resp BP Pulse Ox 03/30/19 07:17 97.6 F 67 16 151/88 96 General: Present: Conversant, No Apparent Distress HEENT: Present: Pupils equal Neck: Absent: JVD, Lymphadenopathy Cardiac: Present: Reg Rate and Rhythm, Normal S1 and S2 Lungs: Present: Normal Breath Sounds Neuro: Present: Alert and responsive, No focal deficits noted, Motor nerves grossly intact (Mildly decreased right foot motor function), Sensory nerves frederick ssly intact (Decreased sensation to the right lower extremity with light touch) Abdomen: Present: Soft, Non-tender Vascular: Present: Normal capillary refill, Capillary refill delayed (Right lower extremity), Pulse, absent (Right femoral to tibial), Pulse, normal (Left lower extremity) Skin: Present: No rashes noted on visualized skin Consult Discharge Plan - Plan Referrals: Norma Goodwin DO [Primary Care Provider] -
[2019-03-30] MEDS ORDERED: CeFAZolin Syr 2,000MG/20 ML 2,000 MG/20 ML SYRINGE IVPB ONE (10:52)
--- NOTE | 2019-03-30 10:58 | Event Note ---
Date of Encounter: 03/30/19 Time of Encounter: 09:15 H&P reviewed. 73-year-old male with history of PAD status post left iliac stent placement complicated by occlusion leading to R-L fem fem bypass graft in 08/2018, who was admitted for acute on chronic left lower extremity ischemia secondary to graft thrombosis. Currently on heparin drip and is being planned for emergent revascularization today. Appreciate vascular surgery input.
[2019-03-30] MEDS ORDERED: Lidocaine 1% 20 ML MDV ONE (11:05)
[2019-03-30] MEDS ORDERED: Heparin 1,000 UNITS/500 mL 1,000 ML ONE ×2 (11:05→13:12)
[2019-03-30] MEDS ORDERED: Vancomycin 1,000 MG VIAL ONE (11:06)
--- NOTE | 2019-03-30 11:10 | Anesthesia Procedures ---
Date of Encounter: 03/30/19 Time of Encounter: 11:10 Procedures: Anesthesia - Arterial Line Consent obtained: written consent Time out performed: Yes Sedation: Versed (mg): 2 Sedation: Fentanyl (mcg): 100 Supplemental Oxygen via Nasal Cannula (L/min): 2 Local Anesthetic: Lidocaine 1% Size (Gauge): 20 Length (inches): 1 3/4 Technique Used: direct puncture technique Post-Procedure: line taped into place, dry sterile dressing placed Patient tolerated procedure: well, no complications Complications: none Site: Radial L
[2019-03-30] MEDS ORDERED: EPHEDrine 50 MG/ML VIAL ONE (11:58)
[2019-03-30] MEDS ORDERED: Lidocaine -MPF 4% 5 ML AMPUL ONE (13:12)
[2019-03-30] MEDS ORDERED: *HR* Midazolam HCl 2 MG/2 ML VIAL ONE (13:12)
[2019-03-30] MEDS ORDERED: *HR* Propofol 200 MG/20 ML VIAL IVP ONE (13:12)
[2019-03-30] MEDS ORDERED: *HR* Heparin 5,000 UNIT/ML VIAL ONE (13:12)
[2019-03-30] MEDS ORDERED: *HR* FentaNYL (PF) 100 MCG/2 ML VIAL ONE (13:12)
[2019-03-30] MEDS ORDERED: Ondansetron 4 MG/2 ML VIAL ONE (13:12)
[2019-03-30] MEDS ORDERED: *HR* Phenylephrine 10 MG/ML VIAL ONE (13:12)
[2019-03-30] MEDS ORDERED: *HR* Remifentanil 2 MG VIAL IVP ONE (13:12)
[2019-03-30] MEDS ORDERED: *HR* PHENYLEPHRINE 1,000 MCG/10 ML SYRINGE IVP ONE (13:12)
[2019-03-30] MEDS ORDERED: *HR* Succinylcholine 200 MG/10 ML VIAL IVP ONE (13:12)
[2019-03-30] MEDS ORDERED: Lidocaine -MPF 2% 2 ML VIAL ONE ×2 (13:12)
[2019-03-30] MEDS ORDERED: Dexamethasone 4 MG/ML VIAL ONE (13:13)
--- NOTE | 2019-03-30 13:41 | Operative Note ---
Date of procedure: 03/30/19 Pre-op diagnosis: Acute right lower extremity ischemia Post-op diagnosis: same Procedure: 1. Femoral to femoral artery bypass graft thrombectomy with revision of the left femoral anastomosis. 2. Left common femoral endarterectomy Complications: None Anesthesia: GHULAM Surgeon: Sonny Olivo Was there an pastrycook's assistant present: No Estimated blood loss (cc): 50 Specimen: None Condition: stable Disposition: PACU Procedure in Detail: Indications: The patient is a 73-year-old male with a history of peripheral vascular disease with disabling claudication is previously undergone a femoral to femoral artery bypass graft. He also has a history of hyperlipidemia, hypertension and tobacco abuse. The patient presented to the emergency room with complaints of acute right lower extremity ischemia. He is found have an occluded femoral-femoral artery bypass graft. Revascularization was recommended to reduce his risk of limb loss and alleviate his symptoms. Procedure: The patient was identified in the preoperative area. The risks, benefits and alternatives of the procedure were discussed with him and all questions were answered. The patient was then taken to the operating room and placed in supine position on the operating table. After the induction of general endotracheal anesthesia he was cleaned and draped in normal sterile fashion. An incision was made to the patient's previous left inguinal scar sharply. Hemostasis was obtained with electrocautery. Through a process of blunt, sharp and cautery dissection, the superficial femoral deep femoral common femoral external iliac artery and bypass graft were dissected circumferentially and surrounded with vessel loops. The patient received 5000 units of intravenous heparin. After waiting adequate time for the heparin to surgery at the vessels and graft were occluded. A longitudinal arteriotomy was made in the graft anastamosis. Dense adherent thrombus was identified. A Atul embolectomy catheter was passed through the graft into the right lower extremity. The balloon was inflated and withdrawn. Significant thrombus was retrieved. Multiple additional passes were performed until there were 2 passes without any thrombus. Vigorous pulsatile flow was noted through the graft this time. The graft was flushed with heparinized saline and occluded. Further inspection of the graft revealed intimal hyperplasia along the rim of the anastomosis. Using a dental freer, an endarterectomy was performed of the common femoral artery. Primary closure of the graft appeared to result in stenosis at the proximal limb. Therefore the decision was made to revise he proximal anastomosis with a Hemashield patch. A Hemashield patch was cut to fit the graft defect and sutured in place with running 6-0 Prolene. Prior to completing the closure a vessel was flushed and infused with heparinized saline. The graftotomy was reapproximated and flow was restored. Polyphasic signals were present distal to the anastomosis. Platelet rich and platelet poor plasma were infused into the wound. The wound was reapproximated with a layer of 2-0 Vicryl followed by 2 layers of 3-0 Vicryl. A 3-0 Monocryl was used to reapproximate the skin. Local anesthetic was infused into the skin. A sterile dressing was applied. The patient was not expected and taken to the recovery room in stable condition.
[2019-03-30] MEDS: *HR* HYDROmorphone (PF) 1 MG/ML SYRINGE IVP PRN ×3 (13:43→14:02)
--- NOTE | 2019-03-30 14:22 | Anesthesia Evaluation Post Op ---
Date of Encounter: 03/30/19 Time of Encounter: 14:21 - Vital Signs Vital Signs: Vital Signs/O2 Sat, Most Current Temp Pulse Resp BP Pulse Ox 98.6 F 74 16 158/72 98 03/30/19 13:59 03/30/19 14:09 03/30/19 14:09 03/30/19 14:09 03/30/19 14:09 - Lungs Lungs: Clear Ascult./Percussion - Airway Airway: Non-obstructed - Cardiovascular Regular Rate, Baseline Rhythm - Mental Status Mental Status: Asleep with brisk response to light stimulation - Pain Pain Scale: 0 - Nausea Vomiting Nausea Vomiting: Not Present - Hydration Hydration: Ice chips - Discharge PostOp Status: Transfer Patient to floor
--- NOTE | 2019-03-30 14:33 | Electrocardiograph Report ---
[place] [id number] Test Date: 2019-03-29 Pat Name: Phan Mayer Department: [id number] Room: 2N08 Gender: M Conference Coordinator: : 1945 Requested By: Jessica Chi Order Number: [id number] Reading MD: Wilfredo Nicole Measurements Intervals [place] Rate: 70 P: 57 MO: 135 QRS: -36 QRSD: 91 T: 62 QT: 395 QTc: 427 Interpretive Statements Sinus rhythm Left axis deviation Borderline low voltage, extremity leads Abnormal R-wave progression, early transition Abnormal inferior Q waves Electronically Signed On 03-30-2019 14:32:00 EDT by Wilfredo Nicole
[2019-03-30] MEDS ORDERED: 0.9 % Sodium Chloride 1,000 ML IVC SCH (14:39)
[2019-03-30] MEDS ORDERED: *HR* HYDROcodone/Acet 5/325 mg TABLET PO PRN ×2 (14:39)
[2019-03-30] MEDS ORDERED: Ondansetron 4 MG/2 ML VIAL IVP PRN (14:39)
[2019-03-30] MEDS: *HR* Metoprolol 5 MG/5 ML VIAL IVP SCH (17:54)
[2019-03-31] MEDS: *HR* Metoprolol 5 MG/5 ML VIAL IVP SCH ×2 (01:50→04:22)
[2019-03-31 04:07] LABS: Basophils % 0.3 %; Eosinophils % 0.6 %; Immature Granulocytes % 0.4 % (0-4); Lymphocytes # 0.7 K/mcL (0.6-4.6); Lymphocytes % 10.3 %; Mean Corpuscular HGB Conc 33.2 g/dL (31.6-35.5); Mean Corpuscular Hemoglobin 30.9 pg (28.0-33.3); Mean Corpuscular Volume 93.1 fL (83.0-100.0); Mean Platelet Volume 11.2 fL (9.4-12.4); Monocytes # 0.5 K/mcL (0.0-1.3); Monocytes % 7.5 %; Neutrophils # 5.8 K/mcL (1.6-8.9); Platelet Count 133 K/mcL (140-400); Red Blood Count 4.08 M/mcL (4.19-5.50); Red Cell Distribution Width 12.6 % (11.5-14.5); Segmented Neutrophils % 80.9 %; White Blood Count 7.2 K/mcL (4.3-11.1)
[2019-03-31 04:13] LABS: Hemoglobin 12.6 g/dL (12.9-16.9)
[2019-03-31 05:13] LABS: BUN/Creatinine Ratio 17 (6-26); Blood Urea Nitrogen 12 mg/dL (8-23); Calcium 8.5 mg/dL (8.6-10.3); Carbon Dioxide 23 mEq/L (23-29); Chloride 108 mEq/L (98-107); Glucose 88 mg/dL (70-105); Osmolality,Calculated 283 (280-300); Potassium 3.7 mEq/L (3.5-5.1); Sodium 137 mEq/L (136-145); eGFR For African Americans > 60 (> 60); eGFR For Non-African Americans > 60 (> 60)
[2019-03-31] MEDS ORDERED: *HR* Heparin 5,000 UNIT/ML VIAL SQ SCH (06:00)
[2019-03-31 07:42] VITALS: BP 139/73
--- NOTE | 2019-03-31 10:10 | Discharge Summary ---
- NOTES TO OUTPATIENT PROVIDER Notes to Outpatient Provider: Follow with vascular surgery as outpatient Date of Encounter: 03/31/19 Time of Encounter: 07:15 - Discharge Diagnosis (1) Ischemia of right lower extremity Priority: Primary Status: Acute (2) Leg graft occlusion Priority: Secondary Status: Acute Qualifiers: Encounter type: initial encounter Qualified Code(s): T82.898A - Other specified complication of vascular prosthetic devices, implants and grafts, initial encounter (3) Smoking addiction Priority: Secondary Status: Acute (4) Essential hypertension Priority: Secondary Status: Chronic (5) Mixed hyperlipidemia Priority: Secondary Status: Chronic Hospital course: Mr. Mayer is a 73 year old male with history of HTN, HLD, tobacco abuse, PAD status post left iliac stent placement complicated by occlusion leading to R-L fem fem bypass graft in 08/2018, who was admitted for acute on chronic left lower extremity ischemia secondary to graft thrombosis. He was initially placed on heparin drip on admission which was followed by graft thrombectomy with revision of the left femoral anastomosis and left common femoral endarterectomy. He underwent the procedure uneventfully and will be discharged home on POD #1 with vascular surgery follow up as outpatient. Discharge discussed with: patient, nurse, case management - Time Spent with Patient Total time spent providing and/or coordinating discharge services:31 mins - Discharge Medications Prescriptions: Continued Multivitamin [One-Daily Multi-Vitamin] 1 tab PO DAILY Aspirin [Lo-Dose Aspirin EC] 81 mg PO DAILY Gabapentin [Neurontin] 300 mg PO TID PRN PRN Reason: Pain Pravastatin Sodium [Pravachol] 20 mg PO HS Home Medications: Aspirin [Lo-Dose Aspirin EC] 81 mg PO DAILY 08/10/18 [History] Multivitamin [One-Daily Multi-Vitamin] 1 tab PO DAILY 08/10/18 [History] Gabapentin [Neurontin] 300 mg PO TID PRN 03/31/19 [History] Pravastatin Sodium [Pravachol] 20 mg PO HS 03/31/19 [History] Allergies/Adverse Reactions: Allergy/AdvReac Type Severity Reaction Status Date / Time lisinopril Allergy Swelling Verified 03/29/19 15:19 of Lip/Tongue/Throat Date of admission: 03/30/19 01:20 Primary care physician: Norma Goodwin Consults: 03/29/19 22:25 Consult to Vascular Surgery [CONS] Stat Consulting Provider: Vascular Surgery Bertha Reason for Consult: Pt known to Dr. Olivo, spoke with Dr. Rand Time Notified: 22:26 Call Completed: Yes - Constitutional Vitals: Temp Pulse Resp BP Pulse Ox 97.5 F L 66 16 139/73 97 03/31/19 07:39 03/31/19 07:56 03/31/19 07:39 03/31/19 07:39 03/31/19 07:39 Exam: Vitals: Reviewed General: alert and oriented x 3, no acute distress. Chest: Normal thoracic expansion. Normal breath sounds. Clear to auscultation. Heart: Normal S1 & S2; rhythmic. No rubs or murmurs. Abdomen: Non-distended, soft and non-tender to palpation. No peritoneal reaction. Extremities: Left toes with purplish discoloration in its distal portion but it is warm to touch now. Neurological: Awake, alert and oriented to person, place and time. No focal deficits. - Patient Status Disposition: Home, Self-Care Condition: Serious Functional capacity at discharge: independent ambulation Overall status at discharge: patient is progressing back to baseline - Discharge Instructions Instructions: How to Stop Smoking (GEN), Peripheral Vascular Disorders (DC), Chronic Hypertension (DC) Follow Up With: Norma Goodwin DO [Primary Care Provider] - 04/04/19 1:30 pm Sonny Olivo MD [Partnered Physician] - 04/18/19 2:50 pm - Diet and Activity Activity: resume usual activities as tolerated Diet: low salt diet
--- NOTE | 2019-03-31 13:07 | Vascular/Endovas Progress Note ---
Date of Encounter: 03/31/19 Time of Encounter: 07:40 - Assessment and plan (1) Ischemia of right lower extremity Status: Acute The patient is postoperative day #1 after a femorofemoral bypass graft thrombectomy. His feet are warm. He has good pedal signals. His compartments are soft and his incision is healing. He may be discharged to home today. The patient will need to continue with daily Plavix to reduce his risk of recurrent thrombosis. He will follow-up with vascular surgery a few weeks for further evaluation. (2) Mixed hyperlipidemia Status: Chronic (3) Essential hypertension Status: Chronic (4) Tobacco abuse Status: Chronic - Subjective Interval history: The patient reports his legs are much better today. He reports adequate pain control. He denies chest or shortness of breath. - Physical Examination General: Present: Conversant, No Apparent Distress Cardiac: Present: Reg Rate and Rhythm Lungs: Present: Normal Breath Sounds Neuro: Present: Alert and responsive, No focal deficits noted Vascular: Present: Normal capillary refill, Pulse, normal, Surgical incisions (Clean, dry and intact without erythema or drainage). Absent: Cyanosis, Edema Abdomen: Present: Soft Skin: Present: No rashes noted on visualized skin Results 03/31/19 03:55 03/31/19 04:41 Lab Results, Last 24 hours 03/31/19 03/31/19 03:55 04:41 WBC 7.2 Hgb 12.6 L D Hct 38.0 Plt Count 133 L Sodium 137 Potassium 3.7 Chloride 108 H Carbon Dioxide 23 BUN 12 Creatinine 0.72 Glucose 88 Calcium 8.5 L Consult Discharge Plan - Plan Instructions: How to Stop Smoking (GEN), Peripheral Vascular Disorders (DC), Chronic Hypertension (DC) Additional Instructions: May remove bandage and shower on 04/01/2019. Wash wound gently with soap and water only and pat to dry. Apply dry gauze to wound daily for 7 days. No tub baths or swimming until 04/25/2019. Call Dr. Olivo at [phone] with questions or concerns. Referrals: Norma Goodwin DO [Primary Care Provider] - 04/04/19 1:30 pm Sonny Olivo MD [Partnered Physician] - 04/18/19 2:50 pm Prescriptions: Clopidogrel [Plavix] 75 mg PO DAILY #30 tablet
== END 2019-03-31 10:51 | disposition home or self-care (01) | DRG 253 ==
LOC: 2NNU 15:12 → EMEROOARM 15:12 → 2NENU 23:51 → SUATTDRO 03-30 01:20 → 2NENU 03-30 01:32 → 2NNU 03-30 12:18
PROVIDERS: ADMIT Internal Medicine; ATTEND Internal Medicine

== ENCOUNTER 2019-07-17 11:06 | Inpatient (IN) ==
[2019-07-17 11:59] LABS: Basophils # 0.1 K/mcL (0.0-0.2); Basophils % 0.8 %; Eosinophils # 0.2 K/mcL (0.0-0.6); Eosinophils % 2.2 %; Hematocrit 47.5 % (37.5-50.1); Hemoglobin 16.7 g/dL (12.9-16.9); Immature Granulocytes % 0.3 % (0-4); Lymphocytes # 1.1 K/mcL (0.6-4.6); Lymphocytes % 14.5 %; Mean Corpuscular HGB Conc 35.2 g/dL (31.6-35.5); Mean Corpuscular Hemoglobin 31.1 pg (28.0-33.3); Mean Corpuscular Volume 88.5 fL (83.0-100.0); Mean Platelet Volume 11.3 fL (9.4-12.4); Monocytes # 0.6 K/mcL (0.0-1.3); Monocytes % 7.5 %; Neutrophils # 5.7 K/mcL (1.6-8.9); Platelet Count 212 K/mcL (140-400); Red Blood Count 5.37 M/mcL (4.19-5.50); Red Cell Distribution Width 13.1 % (11.5-14.5); Segmented Neutrophils % 74.7 %; White Blood Count 7.6 K/mcL (4.3-11.1)
[2019-07-17 12:04] LABS: Prothrombin Time 11.8 Seconds (9.4-12.1)
[2019-07-17 12:06] LABS: Activated Partial Thrombo Time 32.9 Seconds (26.0-36.0)
[2019-07-17 12:30] LABS: BUN/Creatinine Ratio 30 (6-26); Blood Urea Nitrogen 24 mg/dL (8-23); Calcium 9.8 mg/dL (8.6-10.3); Carbon Dioxide 22 mEq/L (23-29); Chloride 103 mEq/L (98-107); Glucose 102 mg/dL (70-105); Osmolality,Calculated 292 (280-300); Potassium 4.3 mEq/L (3.5-5.1); Sodium 139 mEq/L (136-145); eGFR For African Americans > 60 (> 60); eGFR For Non-African Americans > 60 (> 60)
[2019-07-17] MEDS ORDERED: Isovue-370 500 ML BOTTLE IVP ONE (13:40)
[2019-07-17] MEDS ORDERED: *HR* Heparin 5,000 UNIT/ML VIAL IVP PRN ×2 (13:40)
[2019-07-17] MEDS ORDERED: *HR* Heparin 5,000 UNIT/ML VIAL IVP ONE (13:40)
[2019-07-17] MEDS ORDERED: Heparin 25,000 UNIT/250 ML D5W 25,000 UNIT/250 ML IV.SOLN IVC SCH (13:45)
[2019-07-17] MEDS ORDERED: Ondansetron 4 MG/2 ML VIAL IVP ONE ×2 (14:26→16:53)
[2019-07-17] MEDS ORDERED: Acetaminophen IV 1,000 MG/100 ML INFUS..BTL ONE (16:30)
[2019-07-17] MEDS ORDERED: Vancomycin 1,000 MG VIAL ONE (16:32)
[2019-07-17] MEDS ORDERED: Heparin 1,000 UNITS/500 mL 500 ML ONE (16:32)
[2019-07-17] MEDS ORDERED: *HR* FentaNYL (PF) 100 MCG/2 ML VIAL ONE (16:44)
[2019-07-17] MEDS ORDERED: *HR* Propofol 200 MG/20 ML VIAL IVP ONE (16:44)
[2019-07-17] MEDS ORDERED: Ondansetron 4 MG/2 ML VIAL ONE (16:44)
[2019-07-17] MEDS ORDERED: *HR* Rocuronium Bromide 50 MG/5 ML VIAL ONE (16:44)
[2019-07-17] MEDS ORDERED: Lidocaine HCL 4 ML Topical Solution (Laryng-O-Jet Kit Sterile Pak) TP ONE (16:48)
[2019-07-17] MEDS ORDERED: *HR* HYDROmorphone (PF) 1 MG/ML SYRINGE IVP PRN (16:53)
[2019-07-17] MEDS ORDERED: *HR* OxyCODONE Immed Rel 5 MG TABLET PO PRN ×3 (16:53→20:08)
[2019-07-17] MEDS ORDERED: *HR* HYDROMORPHONE 2 MG/ML VIAL ONE (18:39)
[2019-07-17] MEDS ORDERED: Ringers Solution, Lactated 1,000 ML ONE (19:17)
[2019-07-17] MEDS ORDERED: Acetaminophen 325 MG TABLET PO PRN ×2 (20:08)
[2019-07-17] MEDS ORDERED: *HR* Labetalol 20 MG/4 ML SYRINGE IVP PRN (20:08)
[2019-07-17] MEDS ORDERED: *HR* HYDROcodone/Acet 5/325 mg TABLET PO PRN ×2 (20:08)
[2019-07-17] MEDS ORDERED: Ondansetron 4 MG/2 ML VIAL IVP PRN (20:08)
[2019-07-17] MEDS ORDERED: Naloxone 0.4 MG/ML INJ IVP PRN (20:08)
[2019-07-17] MEDS ORDERED: 0.9 % Sodium Chloride 1,000 ML IVC SCH (20:08)
[2019-07-17] MEDS ORDERED: Gabapentin 300 MG CAPSULE PO PRN (20:08)
[2019-07-17] MEDS: *HR* Metoprolol 5 MG/5 ML VIAL IVP SCH (23:18)
[2019-07-18 04:59] LABS: Basophils % 0.1 %; Hematocrit 39.2 % (37.5-50.1); Immature Granulocytes % 0.3 % (0-4); Lymphocytes # 0.3 K/mcL (0.6-4.6); Lymphocytes % 3.4 %; Mean Corpuscular HGB Conc 34.9 g/dL (31.6-35.5); Mean Corpuscular Hemoglobin 31.2 pg (28.0-33.3); Mean Corpuscular Volume 89.3 fL (83.0-100.0); Mean Platelet Volume 11.5 fL (9.4-12.4); Monocytes # 0.3 K/mcL (0.0-1.3); Monocytes % 3.3 %; Neutrophils # 8.9 K/mcL (1.6-8.9); Platelet Count 169 K/mcL (140-400); Red Blood Count 4.39 M/mcL (4.19-5.50); Segmented Neutrophils % 92.9 %; White Blood Count 9.6 K/mcL (4.3-11.1)
[2019-07-18 05:04] LABS: Hemoglobin 13.7 g/dL (12.9-16.9)
[2019-07-18 05:09] LABS: BUN/Creatinine Ratio 26 (6-26); Blood Urea Nitrogen 22 mg/dL (8-23); Calcium 8.4 mg/dL (8.6-10.3); Carbon Dioxide 23 mEq/L (23-29); Chloride 103 mEq/L (98-107); Glucose 134 mg/dL (70-105); Osmolality,Calculated 293 (280-300); Potassium 4.5 mEq/L (3.5-5.1); Sodium 139 mEq/L (136-145); eGFR For African Americans > 60 (> 60); eGFR For Non-African Americans > 60 (> 60)
[2019-07-18] MEDS: *HR* Metoprolol 5 MG/5 ML VIAL IVP SCH (05:13)
[2019-07-18 07:12] VITALS: BP 136/59
[2019-07-18] MEDS ORDERED: Multivit/Ca/Min/Fe/FA 1 TAB TABLET PO SCH (09:00)
[2019-07-18] MEDS ORDERED: Aspirin Enteric Coated 81 MG Tablet PO SCH (09:00)
== END 2019-07-18 11:30 | disposition home or self-care (01) | DRG 253 ==
LOC: EMEROOARM 11:06 → 2NNU 15:15
PROVIDERS: ADMIT Surgery; ATTEND Surgery